=== PATIENT | female | born 1960 | race Caucasian/White ===

== ENCOUNTER 2017-08-11 21:28 | Emergency (ER) | payer MEDICARE ==
[~2017-08-11] VITALS: Ht 165.1 cm; Wt 99.6 kg
[2017-08-11] MEDS ORDERED: DULOXETINE HCL60 MG PO (23:09)
[2017-08-11] MEDS ORDERED: KLS OMEPRAZOLE20 MG PO (23:09)
[2017-08-11] MEDS ORDERED: LASIX 20 MG20 MG/TAB PO (23:10)
[2017-08-11] MEDS ORDERED: LAMICTAL ODT200 MG PO (23:10)
[2017-08-11] MEDS ORDERED: SEROQUEL25 MG PO (23:11)
[2017-08-11] MEDS ORDERED: PRAVASTATIN20 MG PO (23:11)
[2017-08-11] MEDS ORDERED: LOPRESSOR25 MG PO (23:12)
[2017-08-11] MEDS ORDERED: TRAMADOL HCL50 MG PO (23:13)
[2017-08-11] MEDS ORDERED: TIZANIDINE HCL4 MG PO (23:14)
[2017-08-11] MEDS ORDERED: CLEOCIN150 MG PO (23:43)
[2017-08-11] MEDS ORDERED: NAPROSYN500 MG PO (23:43)
[2017-08-12] VITALS: BP 133/71
== END 2017-08-12 | disposition home or self-care (01) ==
LOC: ED 21:28
DX: K02.9 Dental caries, unspecified (principal); M79.7 Fibromyalgia; F17.210 Nicotine dependence, cigarettes, uncomplicated; F31.9 Bipolar disorder, unspecified; F43.10 Post-traumatic stress disorder, unspecified; Z95.1 Presence of aortocoronary bypass graft

== ENCOUNTER 2017-11-09 16:57 | Emergency (ER) | payer MEDICARE ==
[~2017-11-09] VITALS: Ht 165.1 cm; Wt 98.6 kg
[~2017-11-09 16:57] MED LIST: CLEOCIN150 MG PO; DULOXETINE HCL60 MG PO; KLS OMEPRAZOLE20 MG PO; LAMICTAL ODT200 MG PO; LASIX 20 MG20 MG/TAB PO; LOPRESSOR25 MG PO; NAPROSYN500 MG PO; PRAVASTATIN20 MG PO; SEROQUEL25 MG PO; TIZANIDINE HCL4 MG PO; TRAMADOL HCL50 MG PO
[2017-11-09 19:22] VITALS: BP 152/88
[2017-11-09] MEDS ORDERED: PERCOCET 5/325M1 TAB PO (19:33)
[2017-11-09] MEDS ORDERED: CLINDAMYCIN300 M1 PO (19:33)
== END 2017-11-09 19:45 | disposition home or self-care (01) ==
LOC: ED 16:57
DX: T81.31XA Disruption of external operation (surgical) wound, not elsewhere classified, initial encounter (principal); K02.9 Dental caries, unspecified; F17.210 Nicotine dependence, cigarettes, uncomplicated; Y83.8 Other surgical procedures as the cause of abnormal reaction of the patient, or of later complication, without mention of misadventure at the time of the procedure

== ENCOUNTER 2018-02-15 11:09 | Emergency (ER) | payer MEDICARE ==
[~2018-02-15] VITALS: Ht 165.1 cm; Wt 100.0 kg
[~2018-02-15 11:09] MED LIST changes: +CLINDAMYCIN300 M1 PO; +PERCOCET 5/325M1 TAB PO
[2018-02-15] MEDS ORDERED: ATENOLOL25 MG PO (11:41)
[2018-02-15] MEDS ORDERED: LAMICTAL ODT200 MG PO (11:43)
[2018-02-15] MEDS ORDERED: PRAVASTATIN20 MG PO (11:44)
[2018-02-15] MEDS ORDERED: SEROQUEL100 MG PO (11:45)
[2018-02-15] MEDS ORDERED: MELOXICAM7.5 MG PO (11:46)
[2018-02-15] MEDS ORDERED: TIZANIDINE4 MG PO (11:47)
[2018-02-15] MEDS ORDERED: TRAZODONE50 MG PO (11:48)
[2018-02-15] MEDS ORDERED: ALBUTEROL SUL0.083 % IN (11:49)
[2018-02-15] MEDS ORDERED: VENTOLIN HFA IN (11:49)
[2018-02-15] MEDS ORDERED: HYDROCHLOROT12.5 M1 PO (11:50)
[2018-02-15] MEDS ORDERED: TRAMADOL HYDROC50 MG PO (11:51)
[2018-02-15 12:00] LABS: URINE BILIRUBIN - DIPSTICK NEGATIVE (NEGATIVE); URINE BLOOD DIPSTICK NEGATIVE (NEGATIVE); URINE COLOR YELLOW; URINE GLUCOSE - DIPSTICK NEGATIVE (NEGATIVE); URINE KETONE NEGATIVE (NEGATIVE); URINE LEUK ESTERASE NEGATIVE (NEGATIVE); URINE NITRITE - DIPSTICK NEGATIVE (Negative); URINE PH 5.5 (4.5-8.0); URINE PROTEIN - DIPSTICK NEGATIVE (NEG-TRACE); URINE SPECIFIC GRAVITY >=1.030
[2018-02-15 12:01] LABS: HEMATOCRIT 42.7 % (37.0-47.0); HEMOGLOBIN 14.1 g/dl (12.0-16.0); IMMATURE GRANULOCYTES 0.1 % (0.0-1.0); MEAN CELL VOLUME 90.9 fL CALC (80.0-100.0); NEUT# 4.27 thou/uL (2.00-7.15); RED BLOOD COUNT 4.7 mill/uL (4.20-5.60); RED CELL DISTRI WIDTH 12.6 % (11.5-15.5)
[2018-02-15 12:29] LABS: URINE CLARITY CLEAR
[2018-02-15 12:33] LABS: ALBUMIN 4.4 g/dL (3.2-5.0); BILIRUBIN, TOTAL 0.6 mg/dL (0.0-1.4); CREATININE 1.6 mg/dL (0.5-1.0); POTASSIUM 4.7 mmol/l (3.5-5.1); TOTAL PROTEIN 7.5 g/dL (6.3-8.2)
[2018-02-15 12:41] LABS: BARBITURATES NEGATIVE (NEGATIVE); COCAINE NEGATIVE (NEGATIVE); METHADONE NEGATIVE (NEGATIVE); OXCYCODONE NEGATIVE (NEGATIVE); TETRAHYDROCANNABIONOL POSITIVE (NEGATIVE); TRICYLIC ANTIDEPRESSANTS NEGATIVE (NEGATIVE)
[2018-02-15] MEDS ORDERED: ASPERCREME LIDOCA41 TOP (13:46)
[2018-02-15 14:17] VITALS: BP 123/90
== END 2018-02-15 14:17 | disposition home or self-care (01) ==
LOC: ED 11:09
PROVIDERS: Family Medicine
DX: S76.012A Strain of muscle, fascia and tendon of left hip, initial encounter (principal); R10.32 Left lower quadrant pain; R73.9 Hyperglycemia, unspecified; F41.9 Anxiety disorder, unspecified; F32.9 Major depressive disorder, single episode, unspecified; F17.210 Nicotine dependence, cigarettes, uncomplicated; X58.XXXA Exposure to other specified factors, initial encounter; Z86.14 Personal history of Methicillin resistant Staphylococcus aureus infection

== ENCOUNTER 2018-06-21 10:00 | Emergency (ER) | payer OTHER, MEDICARE ==
[~2018-06-21] VITALS: Ht 165.1 cm; Wt 98.0 kg
[~2018-06-21 10:00] MED LIST changes: +ALBUTEROL SUL0.083 % IN; +ASPERCREME LIDOCA41 TOP; +ATENOLOL25 MG PO; +HYDROCHLOROT12.5 M1 PO; +MELOXICAM7.5 MG PO; +SEROQUEL100 MG PO; +TIZANIDINE4 MG PO; +TRAMADOL HYDROC50 MG PO; +TRAZODONE50 MG PO; +VENTOLIN HFA IN
[2018-06-21 10:45] LABS: HEMATOCRIT 38.1 % (37.0-47.0); HEMOGLOBIN 12.7 g/dl (12.0-16.0); IMMATURE GRANULOCYTES 0.1 % (0.0-5.0); MEAN CELL VOLUME 90.7 fL CALC (80.0-100.0); MEAN CORPUSCULAR HGB 30.2 pG CALC (26.0-32.0); MEAN CORPUSCULAR HGB CONC 33.3 g/L CALC (32.0-36.0); NEUT# 3.58 thou/uL (2.00-7.15); RED BLOOD COUNT 4.2 mill/uL (4.20-5.60)
[2018-06-21 11:02] LABS: ALBUMIN 4.1 g/dL (3.2-5.0); ALKALINE PHOSPHATASE 84 u/l (38-126); ANION GAP 13 (6-22 (CALC)); BILIRUBIN, TOTAL 0.5 mg/dL (0.0-1.4); BUN 18 mg/dL (7-17); BUN/CREATININE RATIO 14 (12-20 (CALC)); CARBON DIOXIDE 26 mmol/l (22-30); CHLORIDE 106 mmol/l (95-108); CREATININE 1.3 mg/dL (0.5-1.0); GFR 42 ML/MIN (>=60 (CALC)); GFR FOR AFR.AMER. 51 ML/MIN (>=60 (CALC)); POTASSIUM 4.3 mmol/l (3.5-5.1); SGOT/AST 33 u/l (14-36); SGPT/ALT 25 u/l (9-52); SODIUM 141 mmol/l (137-146); TOTAL PROTEIN 7.1 g/dL (6.3-8.2)
[2018-06-21 11:14] LABS: MYOGLOBIN 46 ng/mL (0 - 62)
[2018-06-21] MEDS ORDERED: ANTIVERT PO (14:04)
[2018-06-21] MEDS ORDERED: NAPROSYN500 MG PO (14:04)
[2018-06-21 14:46] VITALS: BP 137/93
== END 2018-06-21 14:46 | disposition home or self-care (01) | DRG 552 ==
LOC: ED 10:00
PROVIDERS: Emergency Medicine
DX: S13.9XXA Sprain of joints and ligaments of unspecified parts of neck, initial encounter (principal); R42 Dizziness and giddiness; I10 Essential (primary) hypertension; F17.210 Nicotine dependence, cigarettes, uncomplicated; F41.9 Anxiety disorder, unspecified; F32.9 Major depressive disorder, single episode, unspecified; Z95.3 Presence of xenogenic heart valve; V49.40XA Driver injured in collision with unspecified motor vehicles in traffic accident, initial encounter

== ENCOUNTER 2018-08-10 10:43 | Emergency (ER) | payer OTHER, MEDICARE ==
[~2018-08-10] VITALS: Ht 160 cm; Wt 95.5 kg
[~2018-08-10 10:43] MED LIST changes: +ANTIVERT PO
[2018-08-10 12:30] VITALS: BP 133/68
== END 2018-08-10 12:30 | disposition home or self-care (01) | DRG 103 ==
LOC: ED 10:43
DX: F07.81 Postconcussional syndrome (principal); F41.9 Anxiety disorder, unspecified; F32.9 Major depressive disorder, single episode, unspecified; F17.210 Nicotine dependence, cigarettes, uncomplicated; S09.90XS Unspecified injury of head, sequela; V89.2XXS Person injured in unspecified motor-vehicle accident, traffic, sequela

== ENCOUNTER 2018-12-31 13:34 | Emergency (ER) | payer MEDICARE ==
[~2018-12-31] VITALS: Ht 160 cm; Wt 98.0 kg
[2018-12-31] MEDS ORDERED: ULTRAM50 M1 PO (15:54)
[2018-12-31 16:11] VITALS: BP 124/65
== END 2018-12-31 16:11 | disposition home or self-care (01) ==
LOC: ED 13:34
DX: M79.18 Myalgia, other site (principal); F17.210 Nicotine dependence, cigarettes, uncomplicated

== ENCOUNTER 2019-07-19 10:52 | Emergency (ER) | payer MEDICARE ==
[~2019-07-19] VITALS: Ht 160 cm; Wt 77.3 kg
[~2019-07-19 10:52] MED LIST changes: +ULTRAM50 M1 PO
[2019-07-19 12:45] LABS: HEMATOCRIT 39.1 % (37.0-47.0); HEMOGLOBIN 12.7 g/dl (12.0-16.0); IMMATURE GRANULOCYTES 0.2 % (0.0-5.0); MEAN CELL VOLUME 95.6 fL CALC (80.0-100.0); MEAN CORPUSCULAR HGB 31.1 pG CALC (26.0-32.0); MEAN CORPUSCULAR HGB CONC 32.5 g/L CALC (32.0-36.0); NEUT# 6.18 thou/uL (2.00-7.15); RED BLOOD COUNT 4.09 mill/uL (4.20-5.60); RED CELL DISTRI WIDTH 12.7 % (11.5-15.5)
[2019-07-19 12:58] LABS: ALBUMIN 3.9 g/dL (3.2-5.0); ALKALINE PHOSPHATASE 83 u/l (38-126); ANION GAP 10 (6-22 (CALC)); BILIRUBIN, TOTAL 0.5 mg/dL (0.0-1.4); BUN 18 mg/dL (7-17); BUN/CREATININE RATIO 18 (12-20 (CALC)); CARBON DIOXIDE 26 mmol/l (22-30); CHLORIDE 108 mmol/l (95-108); GFR 57 ML/MIN (>=60 (CALC)); GFR FOR AFR.AMER. > 60 ML/MIN (>=60 (CALC)); LIPASE 100 u/l (23-300); POTASSIUM 4.4 mmol/l (3.5-5.1); SGOT/AST 18 u/l (14-36); SODIUM 140 mmol/l (137-146); TOTAL PROTEIN 6.7 g/dL (6.3-8.2)
[2019-07-19 13:18] LABS: URINE BILIRUBIN - DIPSTICK NEGATIVE (NEGATIVE); URINE BLOOD DIPSTICK NEGATIVE (NEGATIVE); URINE COLOR YELLOW; URINE GLUCOSE - DIPSTICK NEGATIVE (NEGATIVE); URINE KETONE TRACE mg/dL (NEGATIVE); URINE LEUK ESTERASE NEGATIVE (NEGATIVE); URINE NITRITE - DIPSTICK NEGATIVE (Negative); URINE PH 6.5 (4.5-8.0); URINE PROTEIN - DIPSTICK NEGATIVE (NEG-TRACE); URINE UROBILINOGEN - DIPSTICK 0.2 E.U./dL (0.2)
[2019-07-19 13:24] LABS: BARBITURATES NEGATIVE (NEGATIVE); COCAINE POSITIVE (NEGATIVE); METHADONE NEGATIVE (NEGATIVE); OXCYCODONE NEGATIVE (NEGATIVE); TETRAHYDROCANNABIONOL POSITIVE (NEGATIVE); TRICYLIC ANTIDEPRESSANTS NEGATIVE (NEGATIVE)
[2019-07-19 16:18] VITALS: BP 116/67
== END 2019-07-19 16:21 | disposition home or self-care (01) ==
LOC: ED 10:52
DX: S90.32XA Contusion of left foot, initial encounter (principal); S93.401A Sprain of unspecified ligament of right ankle, initial encounter; R55 Syncope and collapse; Y92.003 Bedroom of unspecified non-institutional (private) residence as the place of occurrence of the external cause

== ENCOUNTER 2020-11-30 21:00 | Observation (INO) | payer OTHER, MEDICARE ==
[~2020-11-30] VITALS: Ht 160 cm; Wt 66.0 kg
[2020-11-30] MEDS ORDERED: HYDROXYZ HCL25 MG PO (21:20)
[2020-11-30 21:25] LABS: HEMOGLOBIN 11.5 g/dl (12.0-16.0); IMMATURE GRANULOCYTES 0.2 % (0.0-5.0); MEAN CORPUSCULAR HGB 28.4 pG CALC (26.0-32.0); MEAN CORPUSCULAR HGB CONC 33.8 g/dL CAL (32.0-36.0); NEUT# 4.96 thou/uL (2.00-7.15); RED BLOOD COUNT 4.05 mill/uL (4.20-5.60); RED CELL DISTRI WIDTH 12.5 % (11.5-15.5)
[2020-11-30 21:40] LABS: ALBUMIN 4.4 g/dL (3.2-5.0); ALKALINE PHOSPHATASE 90 u/l (38-126); BILIRUBIN, TOTAL 0.7 mg/dL (0.0-1.4); BUN 19 mg/dL (7-17); BUN/CREATININE RATIO 17 (12-20 (CALC)); CARBON DIOXIDE 30 mmol/l (22-30); CREATININE 1.1 mg/dL (0.5-1.0); GFR 51 ML/MIN (>=60 (CALC)); GFR FOR AFR.AMER. > 60 ML/MIN (>=60 (CALC))
[2020-11-30 21:42] LABS: ANION GAP 12 (6-22 (CALC)); CHLORIDE 92 mmol/l (95-108); POTASSIUM 3.1 mmol/l (3.5-5.1); SGOT/AST 38 u/l (14-36); SODIUM 131 mmol/l (137-146); TOTAL PROTEIN 8.2 g/dL (6.3-8.2)
[2020-11-30 21:51] LABS: MYOGLOBIN 66 ng/mL (0 - 62)
[2020-11-30 23:49] LABS: URINE BILIRUBIN - DIPSTICK NEGATIVE (NEGATIVE); URINE BLOOD DIPSTICK TRACE-LYSED (NEGATIVE); URINE COLOR YELLOW; URINE GLUCOSE - DIPSTICK NEGATIVE (NEGATIVE); URINE KETONE NEGATIVE (NEGATIVE); URINE PROTEIN - DIPSTICK NEGATIVE (NEG-TRACE); URINE SPECIFIC GRAVITY 1.015; URINE UROBILINOGEN - DIPSTICK 0.2 E.U./dL (0.2)
[2020-11-30 23:52] LABS: URINE LEUK ESTERASE MODERATE (NEGATIVE)
[2020-12-01] LABS: URINE NITRITE - DIPSTICK NEGATIVE (Negative)
[2020-12-01 04:00] VITALS: BP 98/48
[2020-12-01 04:30] LABS: ANION GAP 10 (6-22 (CALC)); BUN 18 mg/dL (7-17); BUN/CREATININE RATIO 16 (12-20 (CALC)); CARBON DIOXIDE 32 mmol/l (22-30); CHLORIDE 92 mmol/l (95-108); CREATININE 1.1 mg/dL (0.5-1.0); GFR 51 ML/MIN (>=60 (CALC)); GFR FOR AFR.AMER. > 60 ML/MIN (>=60 (CALC)); SODIUM 130 mmol/l (137-146)
[2020-12-01 05:00] VITALS: BP 115/59
[2020-12-01 08:00] VITALS: BP 135/62
[2020-12-01 08:56] LABS: CHOLESTEROL HDL RATIO 4.8 (<4.4 (CALC)); MAGNESIUM 1.9 mg/dL (1.6-2.3)
[2020-12-01 11:45] VITALS: BP 134/60
[2020-12-01] MEDS ORDERED: PRAVASTATIN40 MG PO ×2 (12:55→16:39)
[2020-12-01] MEDS ORDERED: ATENOLOL25 MG PO ×2 (12:55→16:39)
[2020-12-01] MEDS ORDERED: DULOXETINE HCL60 MG PO (12:56)
[2020-12-01] MEDS ORDERED: QUETIAPINE FUM100 MG PO (12:56)
[2020-12-01] MEDS ORDERED: LAMOTRIGINE200 MG PO (12:56)
[2020-12-01] MEDS ORDERED: ADLT ASA LOW81 MG PO (16:39)
[2020-12-01 18:15] VITALS: BP 117/65
== END 2020-12-01 18:15 | DRG 310 ==
LOC: ED 21:00 → ED-I 23:46 → ED 12-01 00:03 → ED-I 12-01 00:04
PROVIDERS: Emergency Medicine; Nurse Practitioner; ADMIT Internal Medicine; ATTEND Internal Medicine
DX: I47.1 Supraventricular tachycardia (principal); R79.89 Other specified abnormal findings of blood chemistry; I25.10 Atherosclerotic heart disease of native coronary artery without angina pectoris; I12.9 Hypertensive chronic kidney disease with stage 1 through stage 4 chronic kidney disease, or unspecified chronic kidney disease; N18.9 Chronic kidney disease, unspecified; F41.9 Anxiety disorder, unspecified; F32.9 Major depressive disorder, single episode, unspecified; F20.9 Schizophrenia, unspecified; F17.210 Nicotine dependence, cigarettes, uncomplicated; T44.7X6A Underdosing of beta-adrenoreceptor antagonists, initial encounter; Z91.128 Patient's intentional underdosing of medication regimen for other reason; Z86.14 Personal history of Methicillin resistant Staphylococcus aureus infection; Z95.1 Presence of aortocoronary bypass graft; Z95.2 Presence of prosthetic heart valve; Z20.822 Contact with and (suspected) exposure to COVID-19